=== PATIENT | male | born 1970 | race Two or more races ===

== ENCOUNTER 2019-08-05 11:21 | Emergency (ER) | payer SELFPAY ==
--- NOTE | 2019-08-05 12:43 | EDM.PDOC ---
ED HPI GENERAL MEDICAL PROBLEM - General Chief Complaint: Lower Extremity Injury/Pain Stated Complaint: LEFT LEG INJURY Time Seen by Provider: 08/05/19 11:25 Source of Information: Reports: Patient History Limitations: Reports: No Limitations - History of Present Illness INITIAL COMMENTS - FREE TEXT/NARRATIVE: 89-year-old male presents to the ED for evaluation of left knee injury that occurred about 11:00 this morning. 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 Since that time he finds it very painful to try and weight-bear of the knee with being extremely straight leg and on the left side. No previous surgery or injuries to the left knee. He got a contusion abrasion to the medial aspect of the right knee as well but he states he can move this left knee and leg normally. Onset: Today Onset Date: 08/05/19 Onset Time: 11:00 Duration: Hour(s): Location: Reports: Lower Extremity, Left Quality: Reports: Ache (Blow to the lateral aspect of the left knee.), Throbbing Severity: Moderate Improves with: Reports: Rest Worsens with: Reports: Other (Worse with movement particularly trying to flex the knee or to weight-bear) Context: Reports: Trauma (1 force trauma when he was kicked by a calf lateral left knee this morning). Denies: Activity, Exercise, Lifting, Sick Contact Associated Symptoms: Reports: No Other Symptoms Treatments [employer]: Reports: Other (see below) (None.) - Related Data Allergies Allergy/AdvReac Type Severity Reaction Status Date / Time No Known Allergies Allergy Verified 08/05/19 11:30 Home Meds: Home Meds oxyCODONE HCl/Acetaminophen [Percocet 5-325 mg Tablet] 1 - 2 each PO Q4H PRN # 20 tablet 08/05/19 [Rx] oxyCODONE HCl/Acetaminophen [Percocet 5-325 mg Tablet] 1 - 2 each PO Q4H PRN # 24 tablet 08/05/19 [Rx] Past Medical History - Past Surgical History Musculoskeletal Surgical History: Reports: Other (See Below) Other Musculoskeletal Surgeries/Procedures:: RT arm surgery- pins Social & Family History - Family History Family Medical History: Noncontributory - Tobacco Use Smoking Status *Q: Light Tobacco Smoker Years of Tobacco use: 10 Packs/Tins Daily: 0.2 - Living Situation & Occupation Living situation: Reports: Single Occupation: Employed Review of Systems - Review of Systems Review Of Systems: See Below Constitutional: Reports: No Symptoms Eyes: Reports: No Symptoms Ears: Reports: No Symptoms Nose: Reports: No Symptoms Mouth/Throat: Reports: No Symptoms Respiratory: Reports: No Symptoms Cardiovascular: Reports: No Symptoms GI/Abdominal: Reports: No Symptoms Genitourinary: Reports: No Symptoms Musculoskeletal: Reports: No Symptoms Skin: Reports: No Symptoms Neurological: Reports: No Symptoms Psychiatric: Reports: No Symptoms ED EXAM, GENERAL - Physical Exam Exam: See Below Exam Limited By: No Limitations General Appearance: Alert, WD/WN, No Apparent Distress, Other (Temperature is 36.5. Pulse is 100s regular. Respiratory to 16 sats are 99% on room air BP 157 /92.) Eye Exam: Bilateral Eye: Normal Inspection, PERRL Extremities: Other (On the right knee inferior to the joint line he has a superficial abrasion approximately 6 inches in length. He has full and opposed range of motion of the knee with no traumatic effusion. On the left side he has a small traumatic effusion clinically. Patellofemoral articulation is okay. There is no pain on palpation of the joint line. There are abrasions to the medial right knee both above and below the joint line. There are abrasions to the lateral left knee as well. He could not flex the knee good enough for me to assess his cruciate ligaments at this time.) Neurological: Alert, Oriented, CN II-XII Intact, Normal Cognition Psychiatric: Normal Affect, Normal Mood Skin Exam: Warm, Dry, Intact, Other (Facial abrasions to the medial right proximal tib-fib and to the medial and lateral aspect of the left knee.) Course - Vital Signs Last Recorded V/S: Last Vital Signs Temp 36.5 C 08/05/19 11:27 Pulse 100 08/05/19 11:27 Resp 16 08/05/19 11:27 BP 157/92 H 08/05/19 11:27 Pulse Ox 99 08/05/19 11:27 - Orders/Labs/Meds Orders: Active Orders 24 hr Category Date Time Status Ondansetron [Zofran ODT] Med 08/05/19 13:19 Active 4 mg PO Q4H PRN Durable Medical Equipment for Discharge [DME for Oth 08/05/19 13:19 Ordered Discharge] [COMM] Stat Medication Orders Ondansetron HCl (Zofran Odt) 4 mg PO Q4H PRN PRN Reason: Nausea/Vomiting Last Admin: 08/05/19 13:39 Dose: 4 mg Meds: Medications Generic Name Dose Route Start Last Admin Trade Name Freq PRN Reason Stop Dose Admin Ondansetron HCl 4 mg 08/05/19 13:19 08/05/19 13:39 Zofran Odt PO 4 mg Q4H PRN Administration Nausea/Vomiting Discontinued Medications Generic Name Dose Route Start Last Admin Trade Name Freq PRN Reason Stop Dose Admin Oxycodone/Acetaminophen 2 tab 08/05/19 13:19 08/05/19 13:38 Percocet 325-5 Mg PO 08/05/19 13:20 2 tab ONETIME ONE Administration - Radiology Interpretation Free Text/Narrative:: 49-year-old male presents to the ED for evaluation of left knee pain after being kicked in the lateral aspect of the knee by a 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 The knee buckled and he nearly fell. Since that time he has marked pain with trying to flex the knee and is able to walk only with peg leg or straight leg weightbearing. No previous injuries to the left knee. When he is not able to flex the knee enough for me to evaluate the cruciate ligaments. Clinically there is a small traumatic effusion evident. The MCL and the LCL are nontender on palpation. I will test him after x-rays are done. View x-ray of the knee to be done. - Re-Assessments/Exams Free Text/Narrative Re-Assessment/Exam: 08/05/19 13:16 rays of the left knee 3 view do not reveal any fractures or malposition's. On rechecking the knee now he has a grade 2 strain of his medial collateral ligament as I can open up the joint even with it in full extension and slightly more with 30 degrees of flexion. The cruciate ligaments appear to be intact clinically. Treatment will therefore be a long knee immobilizer. Ice pack to the knee 1/2-hour out of every 4 hours for 2 days. Motrin 600 mg every 6 hours with Percocet tablet 1 or 2 every 4-6 hours as needed for pain relief for the next for 5 days. You will also be nonweightbearing crutch walking. Advise follow-up with Dr. Watson in orthopedic surgical clinic in 2 weeks time. I will have him make his own follow-up appointment. Departure - Departure Time of Disposition: 13:17 Disposition: Home, Self-Care 01 Condition: Fair Clinical Impression: Grade 2 sprain of medial collateral ligament of knee Qualifiers: Encounter type: initial encounter Laterality: left Qualified Code(s): S83.412A - Sprain of medial collateral ligament of left knee, initial encounter - Discharge Information *PRESCRIPTION DRUG MONITORING PROGRAM REVIEWED*: Not Applicable *COPY OF PRESCRIPTION DRUG MONITORING REPORT IN PATIENT XAVI: Not Applicable Prescriptions: oxyCODONE HCl/Acetaminophen [Percocet 5-325 mg Tablet] 1 - 2 each PO Q4H PRN # 20 tablet PRN Reason: pain relief. oxyCODONE HCl/Acetaminophen [Percocet 5-325 mg Tablet] 1 - 2 each PO Q4H PRN # 24 tablet PRN Reason: pain relief. 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 This resulted in initial injury to the inside of the knee ligaments. Examination reveals a mild amount of blood within the knee joint which we call a traumatic effusion. Trays of the knee do not reveal any broken bones. Physical exam reveals a grade 2 strain of the medial collateral ligament on examination. The cruciate ligaments both anterior and posterior appear to be intact. Lateral collateral ligament also appears to be intact. Treatment is time to heal. Can often take several months like 6-9 to heal completely. She will treatment is long knee immobilizer on during the day and off at night for at least 14 days. And weightbearing crutch walking for the first 4 to 5 days until you can walk comfortably on your foot without pain in your knee. Elevate the knee as much as possible the next 2 days. Ice pack to the knee 1/2-hour out of every 4 hours for the next 2 days. Motrin 600 mg every 6 hours to reduce pain and inflammation. Percocet tabs 5/325 mg 1 or 2 every 4-6 hours as needed for pain relief which she will likely need for the next 2 or 3 nights and then usually the pain starts to settle down. Suggest follow-up with orthopedic surgeon Dr. Watson in approximately 2 weeks time. Phone and make your own appointment. 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 Sepsis Event Note (ED) - Evaluation Sepsis Screening Result: No Definite Risk - Focused Exam Vital Signs: Vital Signs Temp Pulse Resp BP Pulse Ox 08/05/19 11:27 36.5 C 100 16 157/92 H 99 - My Orders Last 24 Hours: My Active Orders 08/05/19 13:19 Ondansetron [Zofran ODT] 4 mg PO Q4H PRN Durable Medical Equipment for Discharge [DME for Discharge] [COMM] Stat - Assessment/Plan Last 24 Hours: My Active Orders 08/05/19 13:19 Ondansetron [Zofran ODT] 4 mg PO Q4H PRN Durable Medical Equipment for Discharge [DME for Discharge] [COMM] Stat
--- NOTE | 2019-08-05 13:11 | CR ---
Left knee: AP, lateral and sunrise patellar views of the left knee were obtained. Comparison: No previous left knee exam. Joint effusion is seen. Medial and lateral joint compartments are maintained in height. Left patellofemoral joint is normal. No fracture or other bony abnormality is appreciated. Impression: 1. Large joint effusion. 2. No bony abnormality is identified on left knee exam. Diagnostic code #3 Study was dictated in MDT
[2019-08-05] MEDS ORDERED: Ondansetron 4 MG Tab.DIS PO PRN (13:19)
[2019-08-05] MEDS ORDERED: Acetaminophen/oxyCODONE 325-5 MG Tab PO ONE (13:19)
== END 2019-08-05 16:30 | disposition home or self-care (01) ==
LOC: JD.ED 11:21
DX: S83.412A Sprain of medial collateral ligament of left knee, initial encounter (principal); F17.290 Nicotine dependence, other tobacco product, uncomplicated; W55.22XA Struck by cow, initial encounter
CPT/HCPCS: 73562-26-LT; 73562-LT; 99283; 99283-25; A9270-GY

== ENCOUNTER 2021-05-25 01:34 | Emergency (ER) | payer SELFPAY ==
[2021-05-25] MEDS ORDERED: HYDROmorphone 1 MG/ML Syringe IVPUSH STA (02:02)
[2021-05-25] MEDS ORDERED: Ondansetron 4 MG/2 ML SDV IVPUSH ONE (02:02)
[2021-05-25] MEDS ORDERED: Sodium Chloride 0.9% 1,000 ML IV SCH (02:15)
[2021-05-25] MEDS ORDERED: Iopamidol 612 MG/ML 100 ML Bottle IVPUSH ONE (03:20)
[2021-05-25] MEDS ORDERED: Diatrizoate Meglumine/Diatrizoate Sodium 37% 120 ML Bottle PO ONE (03:21)
[2021-05-25] MEDS ORDERED: HYDROmorphone 0.5 MG/0.5 ML Syringe IVPUSH ONE (03:48)
== END 2021-05-25 04:51 | disposition home or self-care (01) ==
LOC: JD.ED 01:34
DX: R10.9 Unspecified abdominal pain (principal); R73.9 Hyperglycemia, unspecified; Z72.0 Tobacco use
CPT/HCPCS: 36415; 74177; 74177-26; 80053; 83690; 85007; 85027; 96374; 96375; 96376; 99284; 99284-25; J1170; J2405; J7030; Q9963; Q9967